=== PATIENT | male | born 1970 | race Hispanic/Latino ===

== ENCOUNTER 2020-10-29 14:13 | Emergency (ER) | payer OTHER ==
[~2020-10-29] VITALS: Ht 170.2 cm; Wt 81.6 kg
[2020-10-29] MEDS ORDERED: LIDOCAINE HCL 1% 20 ML VIAL ONE (14:43)
[2020-10-29] MEDS ORDERED: ACETAMINOPHEN WITH CODEINE 1 TAB TAB ONE (14:44)
[2020-10-29] MEDS ORDERED: LIDOCAINE HCL 1% 20 ML VIAL INJ SCH (15:00)
[2020-10-29] MEDS ORDERED: ACETAMINOPHEN WITH CODEINE 1 TAB TAB PO SCH (15:00)
[2020-10-29] MEDS ORDERED: ACET-2247 PO (15:12)
[2020-10-29 15:27] VITALS: BP 138/67
== END 2020-10-29 15:28 | disposition home or self-care (01) ==
LOC: EDH 14:13
DX: S51.811A Laceration without foreign body of right forearm, initial encounter (principal); X58.XXXA Exposure to other specified factors, initial encounter; Y93.89 Activity, other specified; Y92.89 Other specified places as the place of occurrence of the external cause; Y99.8 Other external cause status
CPT/HCPCS: 12002; 99282